=== PATIENT | female | born 1940 | race Caucasian/White ===

== ENCOUNTER 2020-12-24 12:43 | Observation (INO) | payer MEDICARE ==
[~2020-12-24] VITALS: Ht 165.1 cm; Wt 79.0 kg
[~2020-12-24 12:43] MED LIST: ALTACE10 M1 PO; BAYER LOW81 MG OR; CALTRATE 600 OR; CEFTIN500 MG PO; METFORMIN HCL500 MG OR; METO50TA52 PO; SIMVASTATIN40 MG OR; VITAMIN D PO
--- NOTE | 2020-12-24 13:45 | NUR ---
PATEINT AMBULATED TO ROOM WITH STEADY GAIT AND PHYSICIAN NOTIFIED OF PATIENT STATUS
[2020-12-24 15:19] LABS: HEMATOCRIT 34.4 % (37.0-47.0); IMMATURE GRANULOCYTES 0.5 % (0.0-5.0); MEAN CELL VOLUME 91.2 fL CALC (80.0-100.0); MEAN CORPUSCULAR HGB 29.2 pG CALC (26.0-32.0); NEUT# 2.36 thou/uL (2.00-7.15); RED BLOOD COUNT 3.77 mill/uL (4.20-5.60); RED CELL DISTRI WIDTH 13.5 % (11.5-15.5)
[2020-12-24 15:41] LABS: ALBUMIN 4.1 g/dL (3.2-5.0); ALKALINE PHOSPHATASE 92 u/l (38-126); BUN 25 mg/dL (8-23); BUN/CREATININE RATIO 17 (12-20 (CALC)); CARBON DIOXIDE 27 mmol/l (22-30); CHLORIDE 99 mmol/l (95-108); CREATININE 1.4 mg/dL (0.5-1.0); GFR 36 ML/MIN (>=60 (CALC)); GFR FOR AFR.AMER. 44 ML/MIN (>=60 (CALC)); SODIUM 136 mmol/l (137-146); TOTAL PROTEIN 8.1 g/dL (6.3-8.2)
[2020-12-24 15:43] LABS: ANION GAP 14 (6-22 (CALC)); BILIRUBIN, TOTAL 0.9 mg/dL (0.0-1.4); POTASSIUM 3.5 mmol/l (3.5-5.1); SGOT/AST 46 u/l (9-36)
[2020-12-24 18:00] VITALS: BP 166/59
--- NOTE | 2020-12-24 18:03 | NUR ---
PT ARRIVED FROM ER VIA STRETCHER WITH STAFF.
--- NOTE | 2020-12-24 18:20 | NUR ---
ASSESSMENT IS COMPLETED: IV SITE IS FREE FROM REDNESS OR EDEMA. HR IS REG,PULSES ARE STRONG X4, ABD IS SOFT WITH ACTIVE BS. BREATH SOUNDS ARE CLEAR,BILATERALLY, NO C/O SOB. TELE MONITOR IN PLACE. PT AMBULATED TO THE BED.
[2020-12-24 19:20] VITALS: BP 168/65
--- NOTE | 2020-12-24 22:09 | NUR ---
PT RESTING QUIETLY IN BED, INDICATED SHE WAS FEELING BETTER THAN EARLIER. DENIES PAIN, NO COMPLAINTS VOICED. LUNG [place] CTA EXCEPT LLL IS DIMINISHED. BOWEL SOUNDS ACTIVE X 4. WILL CONTINUE TO MONITOR.
[2020-12-25 00:10] VITALS: BP 153/85
--- NOTE | 2020-12-25 01:31 | NUR ---
PT RESTING QUIETLY IN BED WITH EYES CLOSED. NO COUGH NOTED. BREATHING EVEN AND UNLABORED. UPPER LOBES, RIGHT MIDDLE, AND RIGHT BASE CTA. LEFT LOWER LOBE DIMINISHED. NO ADVENTATIOUS BREATH SOUNDS NOTED. WILL MONITOR.
[2020-12-25 04:05] VITALS: BP 156/65
--- NOTE | 2020-12-25 04:23 | NUR ---
PT RESTING COMFORTABLY IN BED WITH EYES CLOSED. NO S/S OF DISTRESS NOTED. NO COMPLAINTS VOICED. BREATHING EVEN AND UNLABORED. NO COUGH NOTED AT THIS TIME. NO REPORTS OF LOOSE STOOLING AT THIS TIME. LUNGS CTA EXCEPT LEFT LOWER LOBE IS DIMINSHED. PT IS NOT SHOWING ANY SIGNS OF COMPLIACATIONS AT THIS TIME.
[2020-12-25 08:43] VITALS: BP 163/59
--- NOTE | 2020-12-25 08:43 | NUR ---
PT SITTING IN BED. A&O X3. NO DISTRESS NOTED. PT CURRENTLY ON ROOM AIR SUSTAINING 96-97%. PT DENIES ANY SOB. HOP F[employer] WORK[employer] COUGH NOTED. CLEAR/DIMINISHED BREATH SOUNDS UPON AUSCULTATION. ASSISTED PT TO BATHROOM, AMBULATES WELL. CALL LIGHT WITHIN REACH. ASSESSMENT COMPLETED. DISCUSSED POC.
--- NOTE | 2020-12-25 10:15 | NUR ---
DR BRIDGES AND Jacqui BANDA AT BEDSIDE
[2020-12-25 10:30] VITALS: BP 163/61
[2020-12-25] MEDS ORDERED: ATORVASTATIN CA80 MG PO (11:06)
[2020-12-25] MEDS ORDERED: METFORMIN500 M2 PO (11:07)
[2020-12-25] MEDS ORDERED: NORVASC5 M1 PO (11:07)
[2020-12-25] MEDS ORDERED: METOPROLOL SUCC50 MG PO (11:07)
[2020-12-25] MEDS ORDERED: LOSARTAN POTASS50 MG PO (11:07)
[2020-12-25] MEDS ORDERED: ASPIRIN/ENTERIC81 MG PO (11:08)
[2020-12-25] MEDS ORDERED: HYDROCHLOROTH12.5 M1 PO (11:08)
[2020-12-25] MEDS ORDERED: CALTRATE 600+D31 TAB PO (11:09)
[2020-12-25] MEDS ORDERED: VITAMIN D1000 UNIT PO (11:09)
--- NOTE | 2020-12-25 13:42 | NUR ---
PT SITTING IN BED. NO DISTRESS NOTED. PT DENIES SOB. ROUTINE HOME MEDICATIONS GIVEN. CALL LIGHT LEFT WITHIN REACH.
[2020-12-25 15:00] VITALS: BP 152/60
--- NOTE | 2020-12-25 15:56 | NUR ---
PT SLEEPING IN BED. NO DISTRESS NOTED. CALL LIGHT WITHIN REACH.
--- NOTE | 2020-12-25 16:56 | NUR ---
PT SITTING IN BED. NO DISTRESS. ACCUCHECK 210, PT AGREEABLE TO INSULIN COVERAGE. CALL LIGHT LEFT WITHIN REACH. CONTINUE TO MONITOR.
[2020-12-25 19:00] VITALS: BP 149/71
--- NOTE | 2020-12-25 21:00 | NUR ---
PATIENT RESTING IN BED AT THIS TIME-AWAKE ALERT AND ORIENTEDX3. ON ISOLATION IN NEG PRESSURE ROOM FOR COVID. PATIENT IS ON ROOM AIR WITH O2 SAT OF 97% AT THIS TIME. IVF NS PATENT AND INFUSING VIA LEFT HAND SITE AT 100CC/HR. SITE IS HEALTHY AT THIS TIME. TELE MONITOR IN PLACE. ACCU-CHECK IS 234-COVERED WITH HUMALOG 2UNITS SQ PER SLIDING SCALE COVERAGE PROTOCOL. PROVIDED WITH HS SNACK. SAFETY PRECAUTIONS REINFORCED. CALL LIGHT IN REACH. WILL CONT TO MONITOR.
[2020-12-26] VITALS (7 sets, daily range): BP systolic 143–181; BP diastolic 60–75
--- NOTE | 2020-12-26 01:00 | NUR ---
PATIENT RESTING IN BED WITH EYES CLOSED-RESPS ARE EVEN AND UNLABORED. TELE MONITOR IN PLACE. NS PATENT AND INFUSING VIA LEFT HAND IV SITE AT 100CC/HR. CALL LIGHT IN REACH. WILL CONT TO MONITOR.
--- NOTE | 2020-12-26 05:03 | NUR ---
PATIENT RESTING IN BED-EYES ARE CLOSED AND REPS ARE EVEN ANDUNLABORED. IVF PATENT AND INFUSING VIA LEFT HAND SITE. CALL LILT IN REACH. WILL CONT TO MONITOR.
[2020-12-26 06:10] LABS: BASO% 0 % (0-3); EOS% 0 % (0-8); HEMOGLOBIN 10.3 g/dl (12.0-16.0); IMMATURE GRANULOCYTES 0.7 % (0.0-5.0); LYMPH% 17 % (15-41); MEAN CELL VOLUME 91.2 fL CALC (80.0-100.0); MEAN CORPUSCULAR HGB 29.3 pG CALC (26.0-32.0); MEAN CORPUSCULAR HGB CONC 32.2 g/dL CAL (32.0-36.0); MONO% 4 % (2-13); NEUT# 4.48 thou/uL (2.00-7.15); NEUT% 78 % (42-76); RED BLOOD COUNT 3.51 mill/uL (4.20-5.60); RED CELL DISTRI WIDTH 13.4 % (11.5-15.5)
[2020-12-26 06:16] LABS: PLATELET COUNT 268 thou/uL (130-400)
[2020-12-26 06:30] LABS: ALBUMIN 3.3 g/dL (3.2-5.0); BILIRUBIN, TOTAL 0.6 mg/dL (0.0-1.4); C-REACTIVE PROTEIN 4.6 mg/dL (0-0.9); CREATININE 1.4 mg/dL (0.5-1.0); POTASSIUM 4.1 mmol/l (3.5-5.1); TOTAL PROTEIN 6.8 g/dL (6.3-8.2)
--- NOTE | 2020-12-26 07:00 | NUR ---
PT REPORT RECEIVED FROM NIGHT NURSEJAIRO.
--- NOTE | 2020-12-26 08:38 | NUR ---
PT WAS FOUND RESTING IN BED IN SEMI-FOWLERS POSITION;PT IS A&O X3;VS AND ASSESSMENT WERE COMPLETED;VS WERE WITHIN NORMAL LIMITS EXCEPT FOR BP181/60;ALL MORNING MEDICATIONS GIVEN AT THIS TIME;HEART SOUNDS WERE REGULAR IN RATE AND RHYTHM;LUNGS SOUNDS WERE CLEAR AND DIMINISHED IN THE LOWER LOBES;RESPIRATIONS ARE EVEN AND UNLABORED ON RA;#22G IV IN RT HAND IS RUNNING NS @100ML/HR;IV SITE IS PATENT AND FREE OF COMPLICATIONS AT THIS TIME;SCDS IN PLACE;SAFETY PRECAUTIONS IN PLACE;CALL LIGHT WITHIN REACH;BED IN LOWEST POSITION;WILL CONTINUE TO MONITOR.
--- NOTE | 2020-12-26 11:14 | NUR ---
AT BEDSIDE DISCUSSING POC WITH PT.
[2020-12-26] MEDS ORDERED: ZITHROMAX500 MG PO (12:18)
[2020-12-26] MEDS ORDERED: DEXAMETHASON6 MG PO (12:18)
--- NOTE | 2020-12-26 13:00 | NUR ---
PT NOTED TO HAVE ELEVATED BP FOR MOST OF THE MORNING, ALL SCHEDULED BP MEDICATIONS PROVIDED. PT DENIES ANY CURRENT PAIN OR DISCOMFORTS;NATHALIE ANRP NOTIFIED OF ELEVATED BP AND NEW ORDERS RECEIVED.
--- NOTE | 2020-12-26 13:01 | NUR ---
PT WAS FOUND RESTING IN BED IN SEMI-FOWLERS POSITION;PT HAS NO REPORTS OF PAIN AT THIS TIME;OXYGEN QUALIFICATION TEST PERFORMED WITH O2 READINGS BETWEEN 96-98%;PT EXPERIENCED NO SOB WHILE WALKING;#22G IV IN RT HAND IS RUNNING NS @ 10ML/HR;IV SITE IS PATENT AND FREE OF COMPLICATIONS AT THIS TIME;SCDS IN PLACE;SAFETY PRECAUTIONS IN PLACE;CALL LIGHT WITHIN REACH;BED IN LOWEST POSITION;WILL CONTINUE TO MONITOR.
--- NOTE | 2020-12-26 15:52 | NUR ---
PT WAS FOUND SLEEPING IN BED;PT AROUSED TO VERBAL STIMULI;PT REPORTS NO PAIN AT THIS TIME;TELE IN PLACE;#22G IV IN RT HAND IS RUNNING NS @10ML/HR;IV SITE IS PATENT AND FREE OF COMPLICATIONS;SAFETY PRECAUTIONS IN PLACE;CALL LIGHT WITHIN REACH;BED IN LOWEST POSITION;WILL CONTINUE TO MONITOR.
--- NOTE | 2020-12-26 17:52 | NUR ---
PT RECEIVED DISCHARGE PACKET;DISCHARGE INSTRUCTIONS WERE DISCUSSED WITH PT;PT HAD NO FURTHER QUESTIONS;SIGNATURE OBTAINED;IV WAS REMOVED;CATHETER WAS INTACT WITH NO ISSUES;TELE WAS REMOVED;PT AWAITING ARRIVAL OF FAMILY FOR TRANSPORTATION HOME.
--- NOTE | 2020-12-26 18:49 | NUR ---
Discharge instructions given. Patient verbalizes understanding of same. Discharged in stable condition via Wheelchair to Home with family. All belongings sent with pt. PT TRANSPORTED TO [facility] IN STABLE CONDITION VIA WHEELCHAIR ACCOMPANIED BY DANI HAMMOND. ALL BELONGINGS LEFT WITH PT.FAMILY TO TRANSPORT PT HOME.
--- NOTE | 2020-12-28 14:50 | NUR ---
Pneumonia post discharge follow up call completed today, 12.28.20, Daughter of lakshmi say her mother is doing very well. No fever, chills, SOB. Discharge meds are being taken without issue. Follow up appt. has not been made yet, but daughter assures me she will address this soon. No questions or concerns per daughter. Appreciative of follow up call.
== END 2020-12-26 18:50 | disposition home or self-care (01) ==
LOC: ED 12:43 → ED-I 14:43 → ED 16:44 → MS2 16:45
PROVIDERS: Nurse Practitioner; Student in an Organized Health Care Education/Training Program; ADMIT Internal Medicine; ATTEND Internal Medicine
DX: U07.1 COVID-19 (principal); J12.82 Pneumonia due to coronavirus disease 2019; R19.7 Diarrhea, unspecified; R53.1 Weakness; I10 Essential (primary) hypertension; E11.9 Type 2 diabetes mellitus without complications; E78.5 Hyperlipidemia, unspecified; Z79.84 Long term (current) use of oral hypoglycemic drugs; Z87.891 Personal history of nicotine dependence
CPT/HCPCS: J1650

== ENCOUNTER 2021-01-05 04:48 | Observation (INO) | payer MEDICARE ==
[~2021-01-05] VITALS: Ht 165.1 cm; Wt 78.0 kg
[~2021-01-05 04:48] MED LIST changes: +ASPIRIN/ENTERIC81 MG PO; +ATORVASTATIN CA40 MG PO; +CALTRATE 600+D31 TAB PO; +DEXAMETHASON6 MG PO; +HYDROCHLOROTH12.5 M1 PO; +LOSARTAN POTASS50 MG PO; +METFORMIN500 M2 PO; +METOPROLOL SUCC50 MG PO; +NORVASC5 M1 PO; +VITAMIN D3400 UNIT PO; +ZITHROMAX500 MG PO
--- NOTE | 2021-01-05 04:48 | NUR ---
PT OT ROOM VIA EMS FOR BEDSIDE TRIAGE
--- NOTE | 2021-01-05 05:32 | NUR ---
PT TO CT SCAN DAUGHTER AT BEDSIDE, CALL KRAUSE WITHIN REACH
--- NOTE | 2021-01-05 06:14 | NUR ---
ORHTOSTATIC B/P LYING; 131/49 SITTING; 104/58 STANDING; 77/42 MD NOTIFIED
[2021-01-05 06:29] LABS: HEMATOCRIT 39.1 % (37.0-47.0); HEMOGLOBIN 12.7 g/dl (12.0-16.0); MEAN CELL VOLUME 91.6 fL CALC (80.0-100.0); MEAN CORPUSCULAR HGB 29.7 pG CALC (26.0-32.0); MEAN CORPUSCULAR HGB CONC 32.5 g/dL CAL (32.0-36.0); NEUT# 4.64 thou/uL (2.00-7.15); RED BLOOD COUNT 4.27 mill/uL (4.20-5.60); RED CELL DISTRI WIDTH 13.8 % (11.5-15.5)
[2021-01-05 06:35] LABS: URINE BILIRUBIN - DIPSTICK NEGATIVE (NEGATIVE); URINE BLOOD DIPSTICK TRACE-LYSED (NEGATIVE); URINE COLOR YELLOW; URINE GLUCOSE - DIPSTICK NEGATIVE (NEGATIVE); URINE KETONE NEGATIVE (NEGATIVE); URINE LEUK ESTERASE NEGATIVE (NEGATIVE); URINE NITRITE - DIPSTICK NEGATIVE (Negative); URINE PROTEIN - DIPSTICK NEGATIVE (NEG-TRACE); URINE UROBILINOGEN - DIPSTICK 0.2 E.U./dL (0.2)
--- NOTE | 2021-01-05 06:41 | NUR ---
PT AMBULATED TO BATHROMW ITH SBA AND STEAYD GAIT, URINE SPECIMEN OBTAINED, BACK TO ROOM WITH SAME ASSIST, IVF STARTED RODERED.
--- NOTE | 2021-01-05 07:18 | NUR ---
pt supine on stretcher. vss. iv site healthy. fluids via pump. skin warm and dry. resp even unlabored.
[2021-01-05 07:40] LABS: ALBUMIN 3.7 g/dL (3.2-5.0); ALKALINE PHOSPHATASE 76 u/l (38-126); ANION GAP 12 (6-22 (CALC)); BILIRUBIN, TOTAL 0.9 mg/dL (0.0-1.4); BUN 34 mg/dL (8-23); BUN/CREATININE RATIO 34 (12-20 (CALC)); CARBON DIOXIDE 29 mmol/l (22-30); CHLORIDE 99 mmol/l (95-108); GFR 53 ML/MIN (>=60 (CALC)); GFR FOR AFR.AMER. > 60 ML/MIN (>=60 (CALC)); MAGNESIUM 1.7 mg/dL (1.6-2.3); POTASSIUM 4.1 mmol/l (3.5-5.1); SGOT/AST 29 u/l (9-36); SODIUM 136 mmol/l (137-146); TOTAL PROTEIN 6.9 g/dL (6.3-8.2)
[2021-01-05 07:49] LABS: MYOGLOBIN 145 ng/mL (0 - 62)
--- NOTE | 2021-01-05 08:18 | NUR ---
MD AT BEDSIDE DISCUSSING CLINICAL RESULTS AND POC FOR PT TO STAY OVERNIGHT FOR FURTHER MONITORING. PT IN AGREEMENT.
--- NOTE | 2021-01-05 09:15 | NUR ---
PT ADVISED OF WAIT TIME FOR TEST RESULTS. STABLE.
--- NOTE | 2021-01-05 09:36 | NUR ---
SPOKE WITH DR STEIN. HE VERIFIED TO GO AHEAD AND GIVE LOSARTAN. BP 137/54 56
--- NOTE | 2021-01-05 10:19 | NUR ---
REPORT CALLED TO [facility]
--- NOTE | 2021-01-05 10:46 | NUR ---
PT TO [facility] VIA STRETCHER IN STABLE CONDITION. IV SITE HEALTHY. TELEMETRY IN PLACE.
--- NOTE | 2021-01-05 10:53 | NUR ---
PT ARRIVED TO [facility] FLOOR ROOM#263 VIA STRETCHER ACCOMPANIED BY NURSE CHELLY;PT AMBULATED TO BED WITH MINIMAL ASSISTANCE;PT IS A&O X3;PT HAS NO REPORTS OF PAIN AT THIS TIME;VS WERE TAKEN AND ASSESSMENT COMPLETED;PT WAS ORIENTED TO CALL LIGHT AND ROOM;HEART SOUNDS ARE REGULAR IN RATE AND RHYTHM;LUNG SOUNDS ARE CLEAR TO AUSCULTATION;RESPIRATIONS ARE EVEN AND UNLABORED ON RA;TELE IN PLACE;#20G IV IN IS AN EMS SITE;IV SITE IS SL, PATENT AND FREE OF COMPLICATIONS;ALLERGY AND FALL BANDS WERE PLACED ON PT;INVENTORY SHEET COMPLETED;SAFETY PRECAUTIONS IN PLACE;CALL LIGHT WITHIN REACH;BED IN LOWEST POSITION;PT INSTRUCTED TO CALL BEFORE ATTEMPTING TO GET OUT OF BED DUE TO ORTHOSTATIC HYPOTENSION;WILL CONTINUE TO MONITOR.
[2021-01-05 11:05] VITALS: BP 137/52
--- NOTE | 2021-01-05 12:00 | NUR ---
PT WAS FOUND RESTING IN BED;PT IS ALERT AND ORIENTED;#20G IV IN LH IS SL, PATENT AND FREE OF COMPLICATIONS AT THIS TIME;SAFETY PRECAUTIONS IN PLACE;CALL LIGHT WITHIN REACH;BED IN LOWEST POSITION;WILL CONTINUE TO MONITOR.
[2021-01-05 15:03] VITALS: BP 107/50
--- NOTE | 2021-01-05 16:00 | NUR ---
PT IS RESTING IN BED IN SEMI-FOWLERS POSITION;PT HAS NO REPORTS OF PAIN AT THIS TIME;#20G IV IN IS RUNNING NS @100ML/HR AT THIS TIME;IV SITE IS PATENT AND FREE OF COMPLICATIONS;TELE IS IN PLACE;SAFETY PRECAUTIONS IN PLACE;CALL LIGHT WITHIN REACH;BED IN LOWEST POSITION;WILL CONTINUE TO MONITOR.
[2021-01-05 18:55] VITALS: BP 130/67
--- NOTE | 2021-01-05 20:54 | NUR ---
PHYSICAL ASSESMENT COMPLETE. PT CURRENTLY DENIES PAIN OR DISCOMFORT. SCHEDULED MEDICATIONS AND PRN MEDICATION ADMINISTERED, SEE E-MAR. PT DENIES ANY NEEDS AT THIS TIME. PLAN OF CARE REVIEWED, PT DENIES QUESTIONS, VERBALIZES UNDERSTANDING. ITEMS WITHIN REACH, BED LOCKED IN LOW POSITION W/ BEDRAILS UP X2. CALL KRAUSE WITHIN REACH, AGREES TO CALL PRN.
[2021-01-05 23:50] VITALS: BP 145/61
[2021-01-06] VITALS (9 sets, daily range): BP systolic 117–138; BP diastolic 52–65
--- NOTE | 2021-01-06 | NUR ---
PT LAYING IN BED WITH EYES CLOSED, APPEARS TO BE SLEEPING, APPEARS COMFORTABLE AND IN NO DISTRESS. RESPIRATIONS REGULAR AND UNLABORED. ITEMS REMAIN WITHIN REACH, CALL KRAUSE REMAINS WITHIN REACH. BED REMAINS LOCKED AND IN LOW POSITION WITH BEDRAILS UP X2. WILL CONTINUE TO MONITOR.
--- NOTE | 2021-01-06 04:00 | NUR ---
PT RESTING IN BED, NO SIGNS OF DISTRESS NOTED, RESP EVEN AND UNLABORED. PT VOICES NO NEEDS OR COMPLAINTS AT THIS TIME. CALL LIGHT IN REACH, CONTINUE TO MONITOR.
[2021-01-06 05:09] LABS: HEMATOCRIT 33.6 % (37.0-47.0); HEMOGLOBIN 10.8 g/dl (12.0-16.0); IMMATURE GRANULOCYTES 0.3 % (0.0-5.0); MEAN CELL VOLUME 91.3 fL CALC (80.0-100.0); MEAN CORPUSCULAR HGB 29.3 pG CALC (26.0-32.0); MEAN CORPUSCULAR HGB CONC 32.1 g/dL CAL (32.0-36.0); NEUT# 3.82 thou/uL (2.00-7.15); RED BLOOD COUNT 3.68 mill/uL (4.20-5.60); RED CELL DISTRI WIDTH 14.1 % (11.5-15.5)
[2021-01-06 05:37] LABS: ALKALINE PHOSPHATASE 65 u/l (38-126); ANION GAP 8 (6-22 (CALC)); BILIRUBIN, TOTAL 0.8 mg/dL (0.0-1.4); BUN 22 mg/dL (8-23); BUN/CREATININE RATIO 26 (12-20 (CALC)); CALCULATED LDLCHOLESTEROL 41 mg/dL (62-129 (CALC)); CARBON DIOXIDE 28 mmol/l (22-30); CHLORIDE 104 mmol/l (95-108); CHOLESTEROL HDL RATIO 2.6 (<4.4 (CALC)); CREATININE 0.9 mg/dL (0.5-1.0); GFR 60 ML/MIN (>=60 (CALC)); GFR FOR AFR.AMER. > 60 ML/MIN (>=60 (CALC)); HDL CHOLESTEROL 47 mg/dL (>=40); MAGNESIUM 1.6 mg/dL (1.6-2.3); POTASSIUM 4.1 mmol/l (3.5-5.1); SGOT/AST 24 u/l (9-36); SODIUM 136 mmol/l (137-146); TOTAL PROTEIN 5.6 g/dL (6.3-8.2); TOTAL TRIGLYCERIDES 178 mg/dl (30-149); VLDL CHOLESTROL 36 mg/dl (0-48 (CALC))
[2021-01-06 05:39] LABS: ALBUMIN 2.9 g/dL (3.2-5.0); TOTAL CHOLESTEROL 124 mg/dl (0-199)
--- NOTE | 2021-01-06 08:31 | NUR ---
PT SITTING IN BED WATCHING TV. A&O X3. NO DISTRESS NOTED. PT DENIES ANY DIZZINESS AT THIS TIME. STATES SHE HAS BEEN TOLERATING AMBULATING TO THE BATHROOM WITH NO DIFFICULTY. CLEAR BREATH SOUNDS UPON AUSCULTATION. CREASING AND CUTTING PRESS FEEDER IN PLACE. #[address] WITH IVF PER MAR ORDERS. ASSESSMENT COMPLETED. DISCUSSED POC. CALL LIGHT LEFT WITHIN REACH.
--- NOTE | 2021-01-06 10:15 | NUR ---
ORTHOSTATIC BPS COMPLETED BY JAQUELIN BARTON. RESULTS SHOWN AND GIVEN TO Bairon BLANCAS APRN.
--- NOTE | 2021-01-06 12:05 | NUR ---
PT UPDATED ON D/C PLANS FOR TOMORROW, PT VERBALIZED UNDERSTANDING AND AGREEABLE.
--- NOTE | 2021-01-06 12:42 | NUR ---
PT SLEEPING IN BED. NO DISTRESS NOTED. CALL LIGHT WITHIN REACH.
--- NOTE | 2021-01-06 14:10 | NUR ---
PT SITTING IN BED. NO DISTRESS OR NEEDS AT THIS TIME. DAUGHTER AT BEDSIDE. CALL LIGHT WITHIN REACH.
--- NOTE | 2021-01-06 18:15 | NUR ---
PT SITTING IN BED WATCHING TV. NO DISTRESS NOTED OR NEEDS AT THIS TIME. CALL LIGHT WITHIN REACH.
--- NOTE | 2021-01-06 21:15 | NUR ---
PT LAYING IN BED WATCHING TV, NO APPARENT DISTRESS, RESPIRATIONS REGULAR AND UNLABORED. PHYSICAL ASSESMENT COMPLETED, SEE SHIFT ASSESSMENT. EDUCATION ON PLAN OF CARE PROVIDED. PT VERBALIZES UNDERSTANDING AND DENIES QUESTIONS. #20G IV SITE TO L-HAND INFUSING W/O DIFFICULTY, SITE PATENT, DRESSING SECURE. PT IS ABLE TO MAKE NEEDS KNOWN AND DENIES ANY NEEDS AT THIS TIME. CALL KRAUSE WITHIN REACH, AGREES TO CALL PRN. BED LOCKED IN LOW POSITION WITH BEDRAILS UP X2.
[2021-01-07] VITALS (7 sets, daily range): BP systolic 100–152; BP diastolic 42–71
--- NOTE | 2021-01-07 01:15 | NUR ---
PT APPEARS TO BE SLEEPING COMFORTABLY, LAYING IN BED WITH EYES CLOSED, RESPIRATIONS REGULAR AND UNLABORED, NO APPARENT DISTRESS. CALL KRAUSE REMAINS WITHIN REACH. BED REMAINS LOCKED IN LOW POSITION WITH BEDRAILS UP X2.
[2021-01-07 05:26] LABS: HEMATOCRIT 34.9 % (37.0-47.0); HEMOGLOBIN 10.9 g/dl (12.0-16.0); MEAN CELL VOLUME 93.6 fL CALC (80.0-100.0); MEAN CORPUSCULAR HGB 29.2 pG CALC (26.0-32.0); MEAN CORPUSCULAR HGB CONC 31.2 g/dL CAL (32.0-36.0); RED BLOOD COUNT 3.73 mill/uL (4.20-5.60); RED CELL DISTRI WIDTH 14.3 % (11.5-15.5)
[2021-01-07 05:56] LABS: ANION GAP 10 (6-22 (CALC)); BUN 17 mg/dL (8-23); BUN/CREATININE RATIO 21 (12-20 (CALC)); CARBON DIOXIDE 26 mmol/l (22-30); CHLORIDE 104 mmol/l (95-108); CREATININE 0.8 mg/dL (0.5-1.0); GFR > 60 ML/MIN (>=60 (CALC)); GFR FOR AFR.AMER. > 60 ML/MIN (>=60 (CALC)); MAGNESIUM 1.7 mg/dL (1.6-2.3); POTASSIUM 4.1 mmol/l (3.5-5.1); SODIUM 136 mmol/l (137-146)
--- NOTE | 2021-01-07 08:00 | NUR ---
SHIFT CHANGE REPORT, PT AWAKE ALERT AND ORIENTED SITTING UP IN BED, DENIES PAIN/DISCOMFORT, TELE MONITOR IN PLACE, CALL KRAUSE IN REACH AND BED LOCKED IN LOWEST POSITION.
--- NOTE | 2021-01-07 11:48 | NUR ---
SITTING UP IN RECLINER HAVING MEAL, MEDICAL TEAM ROUNDED AND DISCUSSED PLAN OF CARE, ALL NEEDS ADDRESSED.
--- NOTE | 2021-01-07 13:52 | NUR ---
Discharge instructions given. Patient verbalizes understanding of same. Discharged in good condition via Wheelchair to Home with family. All belongings sent with pt.
== END 2021-01-07 13:50 | disposition home or self-care (01) ==
LOC: ED 04:48 → ED-I 08:20 → ED 08:30 → MS2 08:31
PROVIDERS: Family Medicine; Nurse Practitioner; ADMIT Internal Medicine; ATTEND Internal Medicine
DX: I95.1 Orthostatic hypotension (principal); R00.1 Bradycardia, unspecified; R01.1 Cardiac murmur, unspecified; S09.90XA Unspecified injury of head, initial encounter; E11.9 Type 2 diabetes mellitus without complications; I10 Essential (primary) hypertension; E78.5 Hyperlipidemia, unspecified; W19.XXXA Unspecified fall, initial encounter; Z79.84 Long term (current) use of oral hypoglycemic drugs; Y92.002 Bathroom of unspecified non-institutional (private) residence as the place of occurrence of the external cause; Z86.16 Personal history of COVID-19; Z20.822 Contact with and (suspected) exposure to COVID-19
CPT/HCPCS: J1650